=== PATIENT | male | born 1985 | race Caucasian/White ===

== ENCOUNTER → 2018-04-04 13:41 | Outpatient (CLI) | payer OTHER, SELFPAY ==
--- NOTE | 2018-04-04 13:45 | XR_ITS ---
EXAM: XR lumbar spine min 4V HISTORY: ITS.REASON: Low back pain ORDERING PHYSICIAN: JEAN-PIERRE Martin PATIENT AGE: 32 years COMPARISON: None FINDINGS: Normal alignment. No fracture or dislocation. No lytic or blastic change. No significant degenerative change. The disc spaces are preserved. IMPRESSION: Negative lumbar spine
--- NOTE | 2018-04-04 13:45 | XR_ITS ---
XR foot RT min 3V HISTORY: ITS.REASON: Right foot pain ORDERING PHYSICIAN: JEAN-PIERRE Martin PATIENT AGE: 32 years COMPARISON: None FINDINGS: No fracture or dislocation. No lytic or blastic change. There is normal mineralization.. There are minimal osteoarthritic changes of the first metatarsophalangeal joint. There is normal alignment. IMPRESSION: Minimal osteoarthritic change first MTP joint otherwise negative
[2018-04-04 18:33] LABS: Basophils # 0.1 K/mm3 (0-0.2); Basophils % 0.5 % (0.1-2.0); Eosinophils # 0.2 K/mm3 (0.0-0.4); Eosinophils % 1.6 % (0.1-12.0); Hematocrit 47.6 % (42.0-52.0); Hemoglobin 15.6 g/dL (14.1-18.0); Lymphocytes # 3.7 K/mm3 (0.7-4.5); Mean Corpuscular HGB Conc 32.9 g/dL (31.8-35.4); Mean Corpuscular Hemoglobin 29.2 pg (27.0-31.2); Mean Corpuscular Volume 88.7 fl (80-94); Mean Platelet Volume 7.5 fl (7.4-10.4); Monocytes # 0.6 K/mm3 (0.1-1.0); Monocytes % 5.4 % (1.7-9.3); Neutrophils # 6.3 K/mm3 (1.8-7.8); Neutrophils % 58.5 % (37.0-80.0); Platelet Count 368 K/mm3 (142-424); Red Blood Count 5.36 M/mm3 (4.60-6.20); Red Cell Distribution Width 13.3 % (11.5-17.5); White Blood Count 10.8 K/mm3 (4.8-10.8)
[2018-04-04 19:25] LABS: Alanine Aminotransferase 29 U/L (12-78); Albumin Level 4.6 gm/dL (3.4-5.0); Albumin/Globulin Ratio 1.4 (1.1-1.8); Alkaline Phosphatase 51 U/L (46-116); Anion Gap 17.2 mEq/L (5-15); Aspartate Amino Transferase 23 U/L (15-37); Bilirubin,Total 0.4 mg/dL (0.2-1.0); Blood Urea Nitrogen 22 mg/dL (7-18); Calcium 10.9 mg/dL (8.5-10.1); Carbon Dioxide 25 mmol/L (21.0-32.0); Chloride 100 mmol/L (98-107); Chol/HDL Ratio 3.9 (1-3.5); Cholesterol 228 mg/dL (140-200); Creatinine,Serum 0.77 mg/dL (0.70-1.30); Estimated Glomerular Filt Rate 116 ml/min (>60); GFR (African American) 141 ML/MIN (>60); Globulin 3.4 gm/dl (1.3-3.2); Glucose 83 mg/dL (74-106); HDL Cholesterol 59 mg/dL (27-67); LDL Cholesterol 152 mg/dL (0-130); Potassium 4.2 mmoL/L (3.5-5.1); Sodium 138 mmol/L (136-145); T4 (Thyroxine) 13.6 ug/dl (4.7-13.3); Thyroid Stimulating Hormone 1.86 uIU/ml (0.358-3.740); Triglycerides 84 mg/dL (30-200); VLDL Cholesterol 17 mg/dL (0-40)
[2018-04-06 09:21] LABS: Hep A Ab, IgM Negative (Negative); Hepatitis B Core Antibody IgM Negative (Negative); Hepatitis B Surface Antigen Negative (Negative)
[2018-04-06 11:18] LABS: Hepatitis C Antibody <0.1 s/co ratio (0.0-0.9)
== END ==
PROVIDERS: PCP Physician Assistant; Visit Provider Physician Assistant
DX: M79.605 Pain in left leg (principal); M79.671 Pain in right foot; M54.5 Low back pain; M54.42 Lumbago with sciatica, left side; G89.29 Other chronic pain
CPT/HCPCS: 72110; 73630; 80053; 80061; 80074; 82652; 84436; 84443; 85025

== ENCOUNTER 2024-05-08 17:17 | Emergency (ER) | payer BC, SELFPAY ==
[2024-05-08] VITALS (7 sets, daily range): BP systolic 127–143; BP diastolic 86–91; PULSE 71–90; RESP 10–20; TEMP 36.6–36.9; O2SAT 96–98; BMI 34.2
--- NOTE | 2024-05-08 17:20 | ECG_ITS ---
APPROVED REPORT Exam: Resting ECG HR:84 bpm ECG Measurements Heart Rate 84 AXES MS 167 P 39 QRSd 101 QRS 49 QT 356 T 45 QTc 397 Conclusion SINUS RHYTHM NORMAL ECG Electronically signed by : VITO BENTLEY, 05/08/2024 23:12:51
--- NOTE | 2024-05-08 17:28 | XR_ITS ---
PROCEDURE INFORMATION: Exam: XR Chest Exam date and time: 05/08/2024 5:37 PM Age: 38 years old Clinical indication: Pain; Chest pressure; Additional info: SOA, palpitations TECHNIQUE: Imaging protocol: Radiologic exam of the chest. Views: 1 view. COMPARISON: No relevant prior studies available. FINDINGS: Lungs: Unremarkable. No consolidation. Pleural spaces: Unremarkable. No pleural effusion. No pneumothorax. Heart/Mediastinum: Unremarkable. No cardiomegaly. Bones/joints: Unremarkable. IMPRESSION: No acute findings.
--- NOTE | 2024-05-08 17:35 | ED_ITS ---
<Statement entered by Abril Hernandez DO - 05/08/24 22:46> I was consulted by the RAISSA, and we discussed the complexity of the problems being addressed. I approved the treatment and management plan for this patient's care in the emergency department, thus performing a substantive portion of the medical decision making. Abril Hernandez DO Discharge Plan Disposition Patient Disposition: Home, Self-Care Condition: Good Chief Complaint: Arrhythmia/Palpitations Prescriptions Prescriptions: No Action buprenorphine-naloxone [Suboxone] 8-2 mg film 2 film SUBLINGUAL DAILY Referrals Follow up/Referrals: Provider,Referral, MD [Referring] - See instructions Activity Restrictions/Add. Instructions Additional Instructions/Restrictions: Follow-up with primary care provider and director product management, take all medications as prescribed, return to the emerged part with any worsening signs or symptoms. Clinical Impressions Clinical Impression: Palpitations Instructions Patient Instructions: DI for Palpitations Print Language Print Language: Mohawk Discharge ED Provider: Abril Hernandez General Adult HPI General Chief complaint: Arrhythmia/Palpitations Stated complaint: palpitations Time Seen by Provider: 05/08/24 17:26 Mode of Arrival: EMS Source of Information: Patient Limitations: No Limitations History of Present Illness HPI narrative: 8-year-old male presents to the emergency department via EMS for a several hour history of chest tightness palpitations. Patient states he woke up this morning after drinking a 5-hour energy , he began experiencing palpitations and some left arm weakness numbness tingling , he states he just did not feel right . Patient denies any fever chills chest pain shortness of breath, no nausea no vomiting, no constipation no diarrhea no abdominal pain no urinary type symptomatology, no melena no hematochezia, no hematemesis, patient at this time denies any acute symptomatology such as palpitation chest pain, 0 out of 10 pain right now. Other past medical history is consistent with data deficient history of hypertension and hyperlipidemia, patient takes no other medications for this, only takes Suboxone at home. No other history of alcohol or drug use initial triage vitals grossly unremarkable, via EMS aspirin was given and route. Onset (ago): hour(s) Related Data Home Medications ?Medication ?Instructions ?Recorded ?Confirmed buprenorphine 8 mg-naloxone 2 mg 2 film sublingual DAILY 04/04/18 05/08/24 sublingual film (Suboxone) Allergies Allergy/AdvReac Type Severity Reaction Status Date / Time No Known Allergies Allergy Verified 04/21/23 11:03 [facility] Disclaimer: The information contained in this section may have been updated after the patient was seen, as this information can be updated by other users. Medical History Hyperlipidemia Hypertension Vitamin D deficiency Social History (Updated 04/21/23 @ 11:[address] MA) Smoking Status: Current every day smoker tobacco type: e-cigarettes alcohol intake: never substance use type: former substance user, opiates and painkillers current occupational status: employed Travel in the last 8 weeks: None Have you lived/traveled outside [place] in past 30 days?: No Contact w/someone who lives/traveled outside [place] past 30 days?: No Exposure to someone with infectious disease in past 14 days?: No Do you have a fever (greater than 100.4 F or 38 C)?: No Have you tested positive for COVID-19: No Exposed to someone with COVID-19 in past 14 days?: No Do you have a sore throat?: No Do you have a cough?: No Do you have any weakness?: No Do you have any diarrhea?: No Are you experiencing any unusual bleeding?: No Do you have any muscle aches/pain?: No Do you have any abdominal pain?: No Are you experiencing loss of taste or smell?: No ROS Obtained: Yes All systems reviewed & no additional complaints except as documented Physical Exam General General appearance: alert and in no apparent distress Head Head exam: atraumatic and normocephalic Eye Eye exam: Present normal appearance, PERRL and EOMI Neck Neck exam: Present full ROM; Absent meningismus Chest Chest inspection: Present normal inspection Respiratory Respiratory exam: Absent respiratory distress, wheezes, stridor, accessory muscle use or prolonged expiratory phase Cardiovascular Cardiovascular exam: Present normal rhythm and other (Pulses equal and symmetric in bilateral upper and lower extremities) Abdominal Exam Abdominal exam: Absent distention Extremities Exam Extremities exam: Absent edema Neurological Exam Neurological exam: Present alert Psychiatric Psychiatric exam: Present normal affect Skin Skin exam: Present warm and dry Medical Decision Making Medical Records Medical records reviewed: Yes I reviewed the patient's medical records. Screening: Per USPSTF and CDC recommendations, given the prevalence of disease in our region, it is our hospital?s policy to screen for HIV and viral Hepatitis for all patients aged 18 and over and those with ongoing risk factors. Ryley Inquiry Pt receiving controlled substance: No Ryley was queried for this patient: No Vital Signs: 05/08/24 17:31 05/08/24 17:34 05/08/24 18:00 Temperature 97.8 F Temperature Source Oral Pulse Rate 78 Pulse Rate [Left Radial] 90 Respiratory Rate 20 12 10 L Blood Pressure 142/88 H 127/91 H Blood Pressure [Right Arm] 142/88 H Blood Pressure Mean 112 103 Blood Pressure Mean [Right Arm] 106 02 Sat by Pulse Oximetry 98 98 Oxygen Delivery Method Room Air 05/08/24 19:00 Temperature Temperature Source Pulse Rate 75 Pulse Rate [Left Radial] Respiratory Rate 14 Blood Pressure 128/89 Blood Pressure [Right Arm] Blood Pressure Mean Blood Pressure Mean [Right Arm] 02 Sat by Pulse Oximetry 97 Oxygen Delivery Method Lab Data Lab results reviewed: Yes I reviewed the patient's lab results. Lab Results 05/08/24 17:24: WBC 8.5, RBC 4.98, Hgb 14.0 L, Hct 42.0, MCV 84.3, MCH 28.1, MCHC 33.3, RDW 13.2, Plt Count 333, MPV 10.2, Neut % (Auto) 64.6, Lymph % (Auto) 25.4, [place] % (Auto) 8.0, Eos % (Auto) 1.2, Baso % (Auto) 0.6, Neut # (Auto) 5.5, Lymph # (Auto) 2.2, [place] # (Auto) 0.7, Eos # (Auto) 0.1, Baso # (Auto) 0.1, PT 11.2, INR 1.00, Sodium 137, Potassium 4.0, Chloride 104, Carbon Dioxide 26, Anion Gap 11.0, BUN 17, Creatinine 0.80, Estimated Creat Clear 195, Estimated GFR 108, Est GFR ( Amer) 130, Glucose 98, Calcium 8.9, Magnesium 1.8, Total Bilirubin 0.3, AST 28, ALT 22, Alkaline Phosphatase 43, Troponin I < 0.01, NT-Pro-B Natriuret Pep < 20.0, Total Protein 6.9, Albumin 4.5, Globulin 2.4, A lbumin/Globulin Ratio 1.9 H, Lipase 56 05/08/24 19:19: Troponin I 0.02 05/08/24 17:24 05/08/24 17:24 Orders (Tests/Meds): ED MEDICATIONS Discontinued Medications Generic Name Dose Route Start Last Admin Trade Name Freq PRN Reason Stop Dose Admin Aspirin 325 mg 05/08/24 17:34 05/08/24 17:47 Aspirin 325mg Tablet PO 05/08/24 17:35 Not Given ONCE ONE ORDERS Category Date Time Status XR chest portable Stat Exams 05/08/24 17:28 Completed Complete Blood Count Auto Diff Stat Lab 05/08/24 17:24 Completed Comprehensive Metabolic Panel Stat Lab 05/08/24 17:24 Completed Lipase Stat Lab 05/08/24 17:24 Completed Magnesium Stat Lab 05/08/24 17:24 Completed NT Pro Brain Natriuretic Pep. Stat Lab 05/08/24 17:24 Completed PT INR [Prothrombin Time INR] Stat Lab 05/08/24 17:24 Completed Troponin I Q3H Lab 05/08/24 19:19 Completed Troponin I Q3H Lab 05/08/24 23:30 Ordered Troponin I Stat Lab 05/08/24 17:24 Completed HEART Score History (anamnesis): Slightly suspicious ECG: Normal Age: <45 years Risk factors: 1-2 risk factors Troponin: </= normal limit HEART Score: 1 Medical Decision Narrative: 38-year-old male presents to the emergency department for chest tightness and palpitations, differential diagnose include but not limited to ACS, cardiac arrhythmia, electrolyte disturbance, neuritis, GERD, pancreatitis, anxiety type reaction, panic attack. I discussed patient case with attending physician Dr. Hernandez Will obtain basic laboratory studies, chest x-ray, lipase, magnesium level proBNP, PT/INR, troponin, EKG, will give 325 mg p.o. aspirin for pain. CBC is unremarkable I reviewed the patient's EKG along with the attending physician at 1730, NSR 84 bpm WA interval Julio Cesar, QT interval within normal there is no STEMI. CMP grossly unremarkable, I reviewed the patient's chest x-ray along the corresponding radiologic report no acute findings. Patient's repeat troponin is 0.02, still within normal limits, patient has a heart score of 1 with data deficient history of hypertension and hyperlipidemia, patient takes no medications for this. I recommend follow-up with primary care provider and director product management in the upcoming days, patient voiced understanding agreement current treatment plan/discharge plan will follow-up with the emergency department with any worsening signs or symptoms. Patient and family voiced understand agree with current treatment plan/discharge plan. Critical Care Critical Care Time Critical Care Time: No
[2024-05-08 17:46] LABS: Basophils # 0.1 K/mm3 (0-0.2); Basophils % 0.6 % (0.1-2.0); Eosinophils # 0.1 K/mm3 (0.0-0.4); Eosinophils % 1.2 % (0.1-12.0); Lymphocytes # 2.2 K/mm3 (0.7-4.5); Lymphocytes % 25.4 % (10-50); Mean Corpuscular HGB Conc 33.3 g/dL (31.8-35.4); Mean Corpuscular Hemoglobin 28.1 pg (27.0-31.2); Mean Corpuscular Volume 84.3 fl (80-94); Mean Platelet Volume 10.2 fl (7.4-10.4); Monocytes # 0.7 K/mm3 (0.1-1.0); Neutrophils # 5.5 K/mm3 (1.8-7.8); Neutrophils % 64.6 % (37.0-80.0); Platelet Count 333 K/mm3 (142-424); Red Blood Count 4.98 M/mm3 (4.60-6.20); Red Cell Distribution Width 13.2 % (11.5-17.5); White Blood Count 8.5 K/mm3 (4.8-10.8)
[2024-05-08 17:53] LABS: Prothrombin Time 11.2 seconds (10.1-12.5)
[2024-05-08 18:09] LABS: Alanine Aminotransferase 22 U/L (12-78); Albumin Level 4.5 g/dl (3.5-5.0); Albumin/Globulin Ratio 1.9 (1.1-1.8); Alkaline Phosphatase 43 U/L (38-126); Aspartate Amino Transferase 28 U/L (17-59); Bilirubin,Total 0.3 mg/dl (0.2-1.3); Blood Urea Nitrogen 17 mg/dl (9-20); Calcium 8.9 mg/dl (8.4-10.2); Carbon Dioxide 26 mmol/L (22.0-30.0); Chloride 104 mmol/L (98-107); Creatinine Clearance Estimated 195 mL/min (50-200); Estimated Glomerular Filt Rate 108 ml/min (>60); GFR (African American) 130 ML/MIN (>60); Globulin 2.4 g/dL (1.3-3.2); Glucose 98 mg/dl (74-100); Lipase 56 U/L (23-300); Magnesium 1.8 mg/dl (1.6-2.3); Sodium 137 mmol/L (136-145); Total Protein,Serum 6.9 g/dl (6.3-8.2)
[2024-05-08 18:21] LABS: NT Pro Brain Natriuretic Pep. < 20.0 pg/mL (0-125)
[2024-05-08 18:28] LABS: Troponin I < 0.01 ng/ml (0.00-0.034)
[2024-05-08 19:53] LABS: Troponin I 0.02 ng/ml (0.00-0.034)
== END 2024-05-08 20:48 | disposition home or self-care (01) ==
PROVIDERS: Physician Assistant; Emergency Provider Emergency Medicine; PCP Family Medicine
DX: R00.2 Palpitations (principal); R07.89 Other chest pain; R53.1 Weakness; R20.2 Paresthesia of skin; F17.290 Nicotine dependence, other tobacco product, uncomplicated
CPT/HCPCS: 71045; 80053; 83690; 83735; 83880; 84484; 85025; 85610; 93005; 99284

== ENCOUNTER 2024-12-25 13:58 | Outpatient (CLI) | payer BC, SELFPAY ==
[2024-12-25 14:35] LABS: Hematocrit 42.7 % (42.0-52.0); Hemoglobin 14.2 g/dL (14.1-18.0); Immature Granulocytes % 0.3 %; Mean Corpuscular HGB Conc 33.3 g/dL (31.8-35.4); Mean Corpuscular Hemoglobin 28.7 pg (27.0-31.2); Mean Corpuscular Volume 86.4 fl (80-94); Nucleated Red Blood Cells % 0 %; Platelet Count 315 K/mm3 (142-424); Red Blood Count 4.94 M/mm3 (4.60-6.20); Red Cell Distribution Width-SD 41.7 fL; White Blood Count 7.5 K/mm3 (4.8-10.8)
[2024-12-25 14:50] LABS: Alanine Aminotransferase 25 U/L (12-78); Albumin Level 3.5 g/dl (3.5-5.0); Alkaline Phosphatase 55 U/L (38-126); Anion Gap 12.0 mEq/L (5-15); Aspartate Amino Transferase 27 U/L (17-59); Bilirubin,Direct 0.2 mg/dl (0.0-0.4); Bilirubin,Indirect 0.5 mg/dL (0.0-0.9); Bilirubin,Total 0.7 mg/dl (0.2-1.3); Bilirubin,Unconjugated 0.5 mg/dL (0.0-1.1); Blood Urea Nitrogen 14 mg/dl (9-20); Calcium 9.2 mg/dl (8.4-10.2); Carbon Dioxide 27 mmol/L (22.0-30.0); Chloride 101 mmol/L (98-107); Cholesterol 170 mg/dl (140-200); Creatinine,Serum 0.70 mg/dl (0.66-1.25); Estimated Glomerular Filt Rate 125 ml/min (>60); GFR (African American) 151 ML/MIN (>60); Glucose 98 mg/dl (74-100); HDL Cholesterol 46 mg/dl (40-60); Magnesium 1.9 mg/dl (1.6-2.3); Potassium 4.0 mmoL/L (3.5-5.1); Sodium 136 mmol/L (136-145); Total Protein,Serum 7.2 g/dl (6.3-8.2); Triglycerides 80 mg/dl (30-150)
[2024-12-25 15:09] LABS: Free T4 (Free Thyroxine) 1.28 ng/dl (0.78-2.19)
[2024-12-25 15:23] LABS: Thyroid Stimulating Hormone 1.69 uIU/mL (0.465-4.68)
== END 2024-12-25 23:59 | disposition home or self-care (01) ==
LOC: LAB 14:00
PROVIDERS: PCP Family Medicine; Visit Provider Nurse Practitioner
DX: E78.5 Hyperlipidemia, unspecified (principal); I10 Essential (primary) hypertension; R06.83 Snoring; R00.2 Palpitations
CPT/HCPCS: 36415; 80048; 80061; 80076; 83735; 84439; 84443; 85025; 93270